=== PATIENT | male | born 1945 | race Caucasian/White ===

== ENCOUNTER 2016-11-17 10:09 | Emergency (ER) | payer OTHER ==
[2016-11-17 10:27] VITALS: TEMP 98.3; BMI 24.3
--- NOTE | 2016-11-17 10:52 | PDOC ---
History of Present Illness - General Chief Complaint: Hematuria Stated Complaint: BLOOD IN URINE Time Seen by Provider: 11/17/16 10:42 - History of Present Illness Initial Comments: 11/17/16 10:57 Chief complaint: Hematuria History of present illness: Patient has noticed blood in his urine intermittently for the past 2 months. He was seen by a results engineer in [place] and presents with printed copy of the test results. Urinalysis showed only 0-3 red cells and 0-4 white cells, chlamydia and gonorrhea were negative, syphilis serology was negative, white blood count was normal, sugar was 67, and hemoglobin A1c 6. the hematuria is painless, but the patient states that he has had intermittent bilateral low back pain which he designates in the sacral area and which he attributes to his kidneys. Review of systems: Denies polyuria, polydipsia, weight gain or weight loss, chest pain, shortness of breath, abdominal pain, nausea, vomiting, diarrhea, dysuria, frequency, urgency, hesitancy, hematuria, perineal or rectal pain, urethral discharge or burning. History of UTI or kidney stones. Past medical history: Insulin-dependent diabetes and hematuria Social history: Denies tobacco alcohol or nonprescription drugs fully active and without significant disability Family history: Reviewed and noncontributory including early coronary artery disease, metabolic disease including diabetes, and cancer. Physical exam: Alert and oriented, well-developed well-nourished, no acute distress, cheerful and cooperative Afebrile, vital signs normal except for moderately elevated blood pressure 184/ 83. No pallor or icterus. PERRLA, fundi benign, ENT clear Neck supple without bruit mass or nodes Lungs clear, full breath sounds bilaterally CV S1 and S2 normal without murmur rub or gallop pulses full and symmetric no JVD or edema Abdomen nondistended. Bowel sounds normal. Soft without mass tenderness or organomegaly. No CVAT Neurological C2 to 12 intact. No focal sensory or motor deficits. Strength full and symmetric. Gait stable and unimpaired Extremities no CCE Skin clear, no rash, adequate turgor and wet mucous membranes There is mild straightening of the normal lumbar lordosis with some mild bilateral spasm of the paravertebral muscles. No point tenderness or inflammation of the vertebrae. Straight leg raising negative. Again, no distal sensory or motor changes in the extremities Impression: Painless hematuria, persistent Plan: Urinalysis, urine culture, CBC and chemistries, further evaluation depending on results. 11/17/16 11:04 Past History - Past Medical History Allergies/Adverse Reactions: Allergies Allergy/AdvReac Type Severity Reaction Status Date / Time No Known Allergies Allergy Unverified 11/17/16 10:28 Home Medications: Ambulatory Orders Insulin (Levemir) [Levemir Vial] 38 unit SQ DAILY 11/17/16 Diabetes: Yes Other medical history: HERNIATED DISC - Psycho/Social/Smoking Cessation Hx Anxiety: No Suicidal Ideation: No Smoking History: Never smoked Information on smoking cessation initiated: No Hx Alcohol Use: No Drug/Substance Use Hx: No Substance Use Type: None *Physical Exam - Vital Signs Last Vital Signs Temp Pulse Resp BP Pulse Ox 98.3 F 71 16 184/83 100 11/17/16 10:11 11/17/16 10:11 11/17/16 10:11 11/17/16 10:11 11/17/16 10:11 ED Treatment Course - LABORATORY CBC & Chemistry Diagram: 11/17/16 11:04 11/17/16 11:04 *DC/Admit/Observation/Transfer Diagnosis at time of Disposition: Painless hematuria - Discharge Dispostion Disposition: HOME Condition at time of disposition: Stable Admit: No - Referrals Referrals: Alin Gurrola MD., MD [Staff Physician] - 1 week - Patient Instructions Printed Discharge Instructions: DI for Hematuria Additional Instructions: No definite source of bleeding was found in the kidney or urinary tract. However , you could still have a problem with the bladder that would need to be evaluated by a urologist by direct visualization using a scope. It is recommended he see a urologist for further evaluation and treatment within 1 week. Drink a lot of fluids in the meantime. Follow-up as directed.
[2016-11-17 11:00] LABS: URINE APPEARANCE Clear; URINE BILIRUBIN Negative (NEGATIVE); URINE BLOOD Negative (NEGATIVE); URINE GLUCOSE (UA) Negative (NEGATIVE); URINE KETONE Negative (NEGATIVE); URINE LEUK ESTERASE Negative (NEGATIVE); URINE NITRITE Negative (NEGATIVE); URINE PROTEIN Negative (NEGATIVE); URINE UROBILINOGEN 0.2 E.U/dl (0.2-1.0)
[2016-11-17 11:01] LABS: URINE COLOR YELLOW
[2016-11-17 11:21] LABS: BASOPHIL 0.7 % (0-2.0); EOSINOPHIL 4.5 % (0-4.5); MCH 28.5 pg (25.7-33.7); MEAN CELL VOLUME 83.8 fl (80-96); NEUTROPHILS 70.2 % (42.8-82.8); PLATELET COUNT 132 K/MM3 (134-434); RDW 12.7 % (11.9-15.9); WHITE BLOOD COUNT 6.5 K/mm3 (4.0-10.8)
[2016-11-17 11:29] LABS: ALBUMIN 4.3 g/dl (3.5-5.0); ALK PHOS 77 U/L (32-92); ANION GAP 6 (8-16); BILIRUBIN,TOTAL 0.6 mg/dl (0.2-1.0); CALCIUM 8.8 mg/dl (8.4-10.2); CO2 25 mmol/L (22-28); CREATININE 1.2 mg/dl (0.6-1.3); GLUCOSE,RANDOM 160 mg/dl (74-106); SGOT/AST 18 U/L (10-42); SGPT/ALT 18 U/L (10-40); TOT PROT 6.9 g/dl (6.4-8.3)
[2016-11-17] MEDS ORDERED: SODIUM CHLORIDE 1,000 ML IV STA (11:46)
[2016-11-17 13:44] VITALS: BP 181/78
[2016-11-17 13:45] VITALS: PULSE 74
== END 2016-11-17 14:12 | disposition home or self-care (01) ==
LOC: FER 10:09
PROC: 3E0337Z Introduction of Electrolytic and Water Balance Substance into Peripheral Vein, Percutaneous Approach (ICD-10-PCS; principal; 2016-11-17)
DX: R31.9 Hematuria, unspecified (principal); E11.9 Type 2 diabetes mellitus without complications
CPT/HCPCS: 36415; 74177-TC; 80053; 81003; 85025; 87086; 96360; 99283-25